=== PATIENT | female | born 2000 | race Hispanic/Latino ===

== ENCOUNTER 2020-01-18 06:40 | Outpatient (CLI) | payer OTHER ==
[~2020-01-18] VITALS: Ht 154.9 cm; Wt 70.6 kg
[2020-01-18 07:00] VITALS: BP 120/61
[2020-01-18] MEDS ORDERED: LOPERAMIDE 2 MG CAPLET PO ONE (07:15)
[2020-01-18] MEDS ORDERED: LOPERAMIDE 2 MG CAPLET PO PRN (07:15)
[2020-01-18 09:28] VITALS: BP 104/53
== END 2020-01-18 09:51 | disposition home or self-care (01) ==
LOC: M LDO 06:40
PROVIDERS: ATTEND Advanced Practice Midwife
DX: O99.89 Other specified diseases and conditions complicating pregnancy, childbirth and the puerperium (principal); R19.7 Diarrhea, unspecified; Z3A.00 Weeks of gestation of pregnancy not specified
CPT/HCPCS: 59025; G0378; G0463

== ENCOUNTER → 2020-10-27 | Outpatient (CLI) | payer OTHER ==
[~2020-10-27] MED LIST: NORE0.353 PO
== END ==
LOC: M LABSMTC 09:14
PROVIDERS: ATTEND Anesthesiology
DX: Z01.818 Encounter for other preprocedural examination (principal); Z11.52 Encounter for screening for COVID-19

== ENCOUNTER 2020-11-01 06:22 | Day surgery (SDC) | payer OTHER ==
[~2020-11-01] VITALS: Ht 154.9 cm; Wt 66.6 kg
[~2020-11-01 06:22] MED LIST changes: +LR 1,000 ML IV ONE
[2020-11-01] MEDS ORDERED: propofoL 200 MG/20 ML VIAL As Ordered ONE (07:10)
[2020-11-01] MEDS ORDERED: LIDOCAINE 2% 100MG/5ML SDV (FOR ANES.) As Ordered ONE (07:10)
[2020-11-01] MEDS ORDERED: fentaNYL 100 MCG/2 ML INJECTION (J3010) As Ordered ONE (07:10)
[2020-11-01] MEDS ORDERED: MIDAZOLAM INJ 2MG/2ML VIAL (J2250 PER 1MG) As Ordered ONE (07:11)
[2020-11-01] MEDS ORDERED: CHLOROPROCAINE PRES. FREE 2% 20ML VIAL As Ordered ONE (07:17)
[2020-11-01] MEDS ORDERED: LR 1,000 ML IV SCH (08:45)
[2020-11-01] MEDS ORDERED: oxyCODONE 5MG TAB PO PRN (08:45)
[2020-11-01] MEDS ORDERED: ONDANSETRON 4MG/2ML VIAL IV PRN (08:45)
[2020-11-01] MEDS ORDERED: fentaNYL 100 MCG/2 ML INJECTION (J3010) IV PRN (08:45)
[2020-11-01] MEDS ORDERED: NORCO, ANEXSIA 5/325MG TABLET (HYDROcodone/ACETAMINOPHEN) PO PRN (08:45)
[2020-11-01 10:15] VITALS: BP 127/66
--- NOTE | 2020-11-01 15:06 | RO ---
OPERATIVE NOTE DATE OF OPERATION: 11/01/2020 PREOPERATIVE DIAGNOSIS: Perianal fistula. POSTOPERATIVE DIAGNOSIS: Perianal fistula. PROCEDURE: Rectal examination under anesthesia with fistulotomy. SURGEON: Dajuan Damon DO FIELD ENGINEER: None. ANESTHESIA: Spinal. COMPLICATIONS: None. EBL: 2. INDICATIONS FOR PROCEDURE: The patient is a 20-year-old female who presents with persistent perianal drainage, found to have a fistula on her exam in the office. Recommendation made to proceed with examination under anesthesia in the operating room. Risks and benefits of the procedure not limited to but including bleeding, infection, damage to surrounding structures, incontinence, need for further procedure were discussed in detail with the patient, informed consent was obtained, procedure was planned. DESCRIPTION OF PROCEDURE: The patient was brought back to operating room 1, after sufficient spinal sedation she was placed in the prone position. The perianal area was sterilely prepped and draped with Betadine. Time out was done confirming proper patient and proper procedure. Following that a probe was inserted into the obvious fistula tract in the posterior midline. The tract tracked toward the anus posteriorly and diving straight posterior to the external sphincter muscle. The tract went deep and never came out inside of the rectum. I was able to unroof the fistula for about 2.5 cm extending down over top of the sphincter muscle. Once that was completed the tract was cauterized. The mucosa directly over top of the sphincter muscle was then closed with a couple interrupted 2-0 chromic sutures. The rest of the tract was left open. Once that was completed the area was cleaned and dried and 4 x 4 was applied. This ended the procedure. The patient was awakened from anesthesia and sent to PACU in stable condition.
== END 2020-11-01 10:40 | disposition home or self-care (01) ==
LOC: M SDC 06:22
PROVIDERS: ATTEND Surgery
DX: K60.3 Anal fistula (principal)
CPT/HCPCS: 46270; 81025; J2250; J2400; J3010